=== PATIENT | female | born 1980 | race Caucasian/White ===

== ENCOUNTER 2018-04-19 17:58 | Emergency (ER) | payer SELFPAY ==
[~2018-04-19] VITALS: Ht 167.6 cm; Wt 117.9 kg
[2018-04-19 18:00] VITALS: BP_SYST 145
--- NOTE | 2018-04-19 18:00 | NUR ---
Patient placed in bed 3, here for stiff neck x 2 days, concerns aboutr it being related to minor finger lac x 4 days ago no tetanus up to date. Rates stiff neck 11/28.
--- NOTE | 2018-04-19 18:20 | NUR ---
Pt brought by self,A&Ox4, pt states she has a puncture wound on R index finger after getting a staple stock on finger,pt wants to rule out possible tetanus due her sudden neck pain 11/28, pt is afebrile, VS WNL, respirations even and unlabored.
--- NOTE | 2018-04-19 18:23 | NUR ---
Dr Beebe at bedside examining patient
[2018-04-19] MEDS ORDERED: DIPH-TET-PERTUS Vaccine 0.5 ML VIAL (ADACEL) I.M. ONE (19:00)
[2018-04-19 19:16] VITALS: BP_SYST 130
--- NOTE | 2018-04-19 19:16 | NUR ---
Patient given written and verbal discharge instructions and verbalizes understanding. ER MD discussed with patient the results and treatment provided. Patient in stable condition. ID arm band removed. Rx of Clindamycin given. Patient educated on pain management and to follow up with PMD. Pain Scale 0/10 . Opportunity for questions provided and answered.
== END 2018-04-19 19:16 | disposition home or self-care (01) ==
LOC: SED 17:58
DX: L03.011 Cellulitis of right finger (principal); R03.0 Elevated blood-pressure reading, without diagnosis of hypertension
CPT/HCPCS: 90715; 99283